=== PATIENT | male | born 1990 | race African-American/Black ===

== ENCOUNTER 2017-04-23 11:46 | Observation (INO) ==
[2017-04-23 14:17] LABS: PT Patient Result 10.9 SECS
[2017-04-23 14:28] LABS: Albumin 3.2 G/DL (3.4-5.0); Bilirubin,Total 0.4 MG/DL (0.2-1.0); Osmolality,Calculated 274.5 MOS/KG (273-304); Total Protein 6.1 G/DL (6.4-8.3)
[2017-04-23 14:37] LABS: Basophils # 0.1 10*3/uL (0.0-0.2); Basophils % 1.1 % (0.0-0.8); Eosinophils # 0.1 10*3/uL (0.0-0.87); Eosinophils % 1.3 % (0.00-10.9); Hematocrit 39.7 VOL% (42.0-52.0); Hemoglobin 14.4 GM/DL (14.0-18.0); Immature Granulocytes % 0.2 %; Immature Granulocytes Absolute 0.01 #; Lymphocytes # 2.6 10*3/uL (1.4-4.0); Lymphocytes % 57.3 % (21.2-54.2); Mean Corpuscular HGB Conc 36.3 GM/DL (32-36); Mean Corpuscular Hemoglobin 33 PG (27-34); Mean Corpuscular Volume 92.1 FL (87-102); Mean Platelet Volume 9.4 FL (9.6-12.0); Monocytes # 0.4 10*3/uL (0.11-0.8); Monocytes % 8.8 % (1.7-12.7); Neutrophils # 1.4 10*3/uL (1.4-7.4); Neutrophils % 31.3 % (38.7-73.9); Platelet Count 233 T/CUMM (130-400); Red Blood Count 4.31 MC/CUMM (3.8-5.5); Red Cell Distribution Width 14.1 % (9.3-17.3)
[2017-04-23] MEDS ORDERED: ONDANSETRON 4 MG/2 ML VIAL IV PRN (14:58)
[2017-04-23] MEDS ORDERED: ACETAMINOPHEN 325 MG TABLET PO PRN (14:58)
[2017-04-23] MEDS: MORPHINE 2 MG/1 ML SYRINGE IV PRN (16:20)
[2017-04-23 16:44] LABS: Eosinophils 1 % (0-10); Lymphocytes 59 % (20-55); Platelet Estimate Normal; Segmented Neutrophils 37 % (50-85); Total Cells Counted 100
[2017-04-23 16:45] LABS: Polychromasia Few
[2017-04-23 17:09] LABS: White Blood Count 4.3 T/CUMM (4-12)
[2017-04-23] MEDS: DOCUSATE SODIUM 100 MG CAPSULE PO SCH (20:26)
[2017-04-24] MEDS: DEXTROSE 5% NACL 0.45% 1,000 ML IV SCH ×3 (02:30→22:04)
[2017-04-24] MEDS: MORPHINE 2 MG/1 ML SYRINGE IV PRN ×3 (07:54→21:09)
[2017-04-24] MEDS: DOCUSATE SODIUM 100 MG CAPSULE PO SCH ×2 (07:59→21:12)
[2017-04-24] MEDS: PANTOPRAZOLE 40 MG TABLET PO SCH (07:59)
[2017-04-24] MEDS ORDERED: cefOXitin 2,000 MG in SYRINGE 1 EACH IV ONE ×2 (08:00→11:30)
[2017-04-24] MEDS ORDERED: BUPIVACAINE LIPOSOMAL 20 ML/266 MG VIAL ONE (11:31)
[2017-04-24] MEDS ORDERED: LIDOCAINE 2% TOP JELLY 20 ML VIAL INTRAURETH ONE (11:31)
[2017-04-24] MEDS ORDERED: NEOSTIGMINE 10 MG/10 ML VIAL ONE ×2 (13:31→14:01)
[2017-04-24] MEDS ORDERED: SEVOFLURANE 1 UNIT/15 MINUTE INH ONE (14:00)
[2017-04-24] MEDS ORDERED: fentaNYL 100 MCG/2 ML VIAL ONE (14:00)
[2017-04-24] MEDS ORDERED: PROPOFOL 200 MG/20 ML VIAL IV ONE (14:00)
[2017-04-24] MEDS ORDERED: GLYCOPYRROLATE 0.4 MG/2 ML VIAL ONE (14:01)
[2017-04-24] MEDS ORDERED: DEXAMETHASONE 10 MG/1 ML VIAL ONE (14:01)
[2017-04-24] MEDS ORDERED: ROCURONIUM 100 MG/10 ML VIAL IV ONE (14:01)
[2017-04-24] MEDS ORDERED: ONDANSETRON 4 MG/2 ML VIAL ONE (14:01)
[2017-04-24] MEDS ORDERED: KETOROLAC 30 MG/1 ML VIAL ONE (14:01)
[2017-04-24] MEDS ORDERED: MIDAZOLAM 2 MG/2 ML VIAL ONE (14:01)
[2017-04-24] MEDS ORDERED: LACTATED RINGERS 1,000 ML IV ONE (14:01)
[2017-04-24] MEDS ORDERED: MEPERIDINE 25 MG/1 ML VIAL ONE (14:12)
[2017-04-24] MEDS ORDERED: MEPERIDINE 25 MG/1 ML VIAL IV PRN (14:13)
[2017-04-25] MEDS: DEXTROSE 5% NACL 0.45% 1,000 ML IV SCH (05:26)
[2017-04-25] MEDS ORDERED: KETOROLAC 30 MG/1 ML VIAL IM ONE (06:00)
[2017-04-25] MEDS ORDERED: POLYETHYLENE GLYCOL POWDER 17 GM PACK PO SCH (10:30)
[2017-04-25] MEDS: DOCUSATE SODIUM 100 MG CAPSULE PO SCH (10:38)
[2017-04-25] MEDS: PANTOPRAZOLE 40 MG TABLET PO SCH (10:38)
[2017-04-25 11:44] VITALS: BP 139/83
[2017-04-25] MEDS ORDERED: KETOROLAC 15 MG/1 ML VIAL IV SCH (12:00)
== END 2017-04-25 11:53 | disposition home or self-care (01) ==
LOC: N.EDINP 11:46 → N.ED 11:46 → N.EDINP 14:36 → N.2E 14:54
PROVIDERS: ADMIT Surgery; ATTEND Surgery

== ENCOUNTER 2018-04-05 09:30 | Inpatient (IN) ==
[2018-04-05] MEDS ORDERED: MORPHINE 4 MG/1 ML VIAL IV STA (10:40)
[2018-04-05] MEDS ORDERED: ONDANSETRON 4 MG/2 ML VIAL IV ONE (10:40)
[2018-04-05 11:23] LABS: Basophils # 0.1 10*3/uL (0.0-0.2); Basophils % 1.3 % (0.0-0.8); Eosinophils # 0.2 10*3/uL (0.0-0.87); Hematocrit 41.5 VOL% (42.0-52.0); Hemoglobin 14.1 GM/DL (14.0-18.0); Immature Granulocytes % 0.3 %; Immature Granulocytes Absolute 0.01 #; Lymphocytes # 1.6 10*3/uL (1.4-4.0); Lymphocytes % 40.3 % (21.2-54.2); Mean Corpuscular Hemoglobin 33 PG (27-34); Mean Corpuscular Volume 95.8 FL (87-102); Mean Platelet Volume 9.6 FL (9.6-12.0); Monocytes # 0.4 10*3/uL (0.11-0.8); Monocytes % 9.6 % (1.7-12.7); Neutrophils # 1.6 10*3/uL (1.4-7.4); Neutrophils % 42.5 % (38.7-73.9); Platelet Count 218 T/CUMM (130-400); Red Blood Count 4.33 MC/CUMM (3.8-5.5); Red Cell Distribution Width 13.8 % (9.3-17.3); White Blood Count 3.9 T/CUMM (4-12)
[2018-04-05 11:50] LABS: Alanine Aminotransferase 19 U/L (16-61); Albumin 3.5 G/DL (3.4-5.0); Alkaline Phosphatase 81 U/L (45-117); Aspartate Amino Transferase 18 U/L (0-37); Bilirubin,Total < 0.39 MG/DL (0.2-1.0); Blood Urea Nitrogen 10 MG/DL (7-18); Calcium 8.6 MG/DL (8.5-10.1); Glucose 96 MG/DL (74-106); Osmolality,Calculated 277.4 MOS/KG (273-304); Sodium 140 MMOL/L (136-145); Total Protein 6.7 G/DL (6.4-8.3)
[2018-04-05] MEDS ORDERED: HYDROmorphone 2 MG/1 ML VIAL IV PRN ×2 (13:45)
[2018-04-05] MEDS ORDERED: ONDANSETRON 4 MG/2 ML VIAL IV PRN (13:45)
[2018-04-05] MEDS ORDERED: ACETAMINOPHEN 325 MG TABLET PO PRN (13:45)
[2018-04-05] MEDS ORDERED: ceFAZolin 1,000 MG in SYRINGE 1 EACH IV ONE (13:48)
[2018-04-05] MEDS ORDERED: SODIUM CHLORIDE 0.9% 100 ML IV ONE (14:14)
[2018-04-05] MEDS ORDERED: ceFAZolin 1,000 MG VIAL ONE ×2 (14:14→14:19)
[2018-04-05] MEDS ORDERED: BACITRACIN 50,000 UNIT VIAL ONE (15:02)
[2018-04-05] MEDS ORDERED: LIDOCAINE 1%/EPI INJ 20 ML VIAL ONE (15:33)
[2018-04-05] MEDS ORDERED: BUPIVACAINE 0.5% 50 ML VIAL ONE (15:33)
[2018-04-05] MEDS ORDERED: TISSUE ADHESIVE 1 EACH APPLICATOR TOP ONE (15:37)
[2018-04-05] MEDS ORDERED: PROPOFOL 200 MG/20 ML VIAL IV ONE (16:04)
[2018-04-05] MEDS ORDERED: fentaNYL 100 MCG/2 ML VIAL ONE (16:04)
[2018-04-05] MEDS ORDERED: SEVOFLURANE 1 UNIT/15 MINUTE INH ONE (16:04)
[2018-04-05] MEDS ORDERED: GLYCOPYRROLATE 0.4 MG/2 ML VIAL ONE (16:05)
[2018-04-05] MEDS ORDERED: MIDAZOLAM 2 MG/2 ML VIAL ONE (16:05)
[2018-04-05] MEDS ORDERED: ONDANSETRON 4 MG/2 ML VIAL ONE ×2 (16:05→16:12)
[2018-04-05] MEDS ORDERED: KETOROLAC 30 MG/1 ML VIAL ONE (16:05)
[2018-04-05] MEDS ORDERED: PHENYLEPHRINE 1 MG/10 ML SYRINGE IV ONE (16:05)
[2018-04-05] MEDS ORDERED: NEOSTIGMINE 10 MG/10 ML VIAL ONE (16:06)
[2018-04-05] MEDS ORDERED: SUCCINYLCHOLINE 200 MG/10 ML VIAL ONE (16:06)
[2018-04-05] MEDS ORDERED: ROCURONIUM 100 MG/10 ML VIAL IV ONE (16:06)
[2018-04-05] MEDS ORDERED: MEPERIDINE 25 MG/1 ML VIAL ONE (16:12)
[2018-04-05] MEDS ORDERED: INFLUENZA VIRUS VACCINE 0.5 ML SYRINGE IM ONE (16:33)
[2018-04-05] MEDS: LACTATED RINGERS 1,000 ML IV SCH ×2 (16:33→23:23)
[2018-04-05] MEDS: KETOROLAC 15 MG/1 ML VIAL IV PRN (16:52)
[2018-04-06 06:39] LABS: Basophils % 0.6 % (0.0-0.8); Eosinophils # 0.3 10*3/uL (0.0-0.87); Eosinophils % 4.1 % (0.00-10.9); Hematocrit 39.3 VOL% (42.0-52.0); Hemoglobin 13.2 GM/DL (14.0-18.0); Immature Granulocytes % 0.2 %; Immature Granulocytes Absolute 0.01 #; Lymphocytes # 1.9 10*3/uL (1.4-4.0); Lymphocytes % 30.3 % (21.2-54.2); Mean Corpuscular HGB Conc 33.6 GM/DL (32-36); Mean Corpuscular Hemoglobin 32 PG (27-34); Mean Corpuscular Volume 96.3 FL (87-102); Mean Platelet Volume 10.4 FL (9.6-12.0); Monocytes # 0.5 10*3/uL (0.11-0.8); Monocytes % 8.4 % (1.7-12.7); Neutrophils # 3.6 10*3/uL (1.4-7.4); Neutrophils % 56.4 % (38.7-73.9); Platelet Count 205 T/CUMM (130-400); Red Blood Count 4.08 MC/CUMM (3.8-5.5); Red Cell Distribution Width 13.9 % (9.3-17.3); White Blood Count 6.3 T/CUMM (4-12)
[2018-04-06 06:53] LABS: Calcium 8.1 MG/DL (8.5-10.1); Osmolality,Calculated 276.4 MOS/KG (273-304)
[2018-04-06] MEDS: KETOROLAC 15 MG/1 ML VIAL IV PRN (07:30)
[2018-04-06] MEDS: LACTATED RINGERS 1,000 ML IV SCH (07:34)
[2018-04-06] MEDS ORDERED: PANTOPRAZOLE 40 MG TABLET PO SCH (09:00)
[2018-04-06 11:32] VITALS: BP 110/67
== END 2018-04-06 12:36 | disposition home or self-care (01) | DRG 352 ==
LOC: N.ED 09:30 → N.2E 09:30 → OBSVTOIN 13:43 → N.2E 14:24
PROVIDERS: ADMIT Surgery; ATTEND Surgery